=== PATIENT | male | born 1960 | race Caucasian/White ===

== ENCOUNTER 2021-12-07 14:59 | Observation (INO) ==
[2021-12-07] MEDS ORDERED: Lactated Ringers 1000 ml BAG IV.FLUID IV ONE (15:33)
[2021-12-07] MEDS ORDERED: Azithromycin 500 mg/250 ml NS 500 MG/250 ML BAG IVPB ONE (16:06)
[2021-12-07] MEDS ORDERED: cefTRIAXone 1 gm/50 mL D5W 1 GM/50 ML BAG IV ONE (16:06)
[2021-12-07] MEDS ORDERED: Lactated Ringers 1000 ml BAG 1,000 ML IV ONE (16:35)
[2021-12-07 16:48] LABS: ABS Lymphocytes 0.5 10^3/ul (1.0-4.8); ABS Monocytes 0.3 10^3/ul (0-0.8); ABS Neutrophils 8.2 10^3/ul (1.5-7.7); Eosinophil % 0.1 %; Hematocrit 33 % (42-52); Hemoglobin 11.6 g/dL (14.0-18.0); Lymphocyte % 5.4 %; Mean Corpuscular HGB Conc 35 g/dL (31-36); Mean Corpuscular Hemoglobin 32 pg (27-31); Mean Corpuscular Volume 91 fL (80-94); Mean Platelet Volume 8.6 fL (7.4-10.4); Platelet Count 239 10^3/uL (150-450); Red Blood Count 3.66 10^6 /uL (4.18-5.48); Red Cell Distribution Width 13 % (10-15)
[2021-12-07 16:56] LABS: Activated Partial Thrombo Time 28.5 seconds (26.0-38.0); INR 1.24 (0.86-1.15)
[2021-12-07 17:21] LABS: Albumin/Globulin Ratio 1.3 (1-3); C Reactive Protein 235.45 mg/L (<8.01); Calcium 7.9 mg/dL (8.6-10.3); Globulin 2.4 g/dL (2-4); Potassium 4.2 mmol/L (3.5-5.0); Total Protein 5.4 g/dL (6.4-8.9); eGFR CKD-EPI 100.6 (>60)
[2021-12-07] MEDS ORDERED: Remdesivir 100 mg Vial 200 MG in NS 0.9% 250 ml 210 ML IV ONE (17:34)
[2021-12-07 18:13] LABS: High Sensitivity Troponin 1 Hr 16 pg/mL (<20)
[2021-12-07] MEDS ORDERED: Iohexol 350 (CONTRAST) 500 ML MDV IV ONE (18:27)
[2021-12-07] MEDS ORDERED: Enoxaparin 40 MG/0.4 ML SYR SUBCUT SCH (21:00)
[2021-12-08 06:36] LABS: INR 1.19 (0.86-1.15)
[2021-12-08 06:40] LABS: ALT 116 U/L (7-52); Albumin 2.9 g/dL (3.2-5.2); Albumin/Globulin Ratio 1.1 (1-3); Alkaline Phosphatase 116 U/L (35-149); Blood Urea Nitrogen 16 mg/dL (6-24); CO2 Carbon Dioxide 22 mmol/L (22-32); Calcium 8.3 mg/dL (8.6-10.3); Chloride 108 mmol/L (101-111); Globulin 2.7 g/dL (2-4); Glucose 138 mg/dL (70-100); Sodium 139 mmol/L (135-145); Total Protein 5.6 g/dL (6.4-8.9); eGFR CKD-EPI 104.4 (>60)
[2021-12-08 06:44] LABS: Anion Gap 9 mmol/L (2-11)
[2021-12-08 07:44] LABS: ABS Lymphocytes 0.3 10^3/ul (1.0-4.8); ABS Monocytes 0.2 10^3/ul (0-0.8); ABS Neutrophils 6.7 10^3/ul (1.5-7.7); Eosinophil % 0.1 %; Hematocrit 34 % (42-52); Lymphocyte % 3.6 %; Mean Corpuscular HGB Conc 35 g/dL (31-36); Mean Corpuscular Hemoglobin 34 pg (27-31); Mean Corpuscular Volume 96 fL (80-94); Mean Platelet Volume 9.7 fL (7.4-10.4); Nucleated Red Blood Cells % 0.1; Platelet Count 322 10^3/uL (150-450); Red Blood Count 3.57 10^6 /uL (4.18-5.48); Red Cell Distribution Width 14 % (10-15); White Blood Count 7.1 10^3/uL (3.5-10.8)
[2021-12-08 11:17] VITALS: BP 121/68
[2021-12-08] MEDS ORDERED: Remdesivir 100 mg Vial 100 MG in NS 0.9% 250 ml 230 ML IV SCH (21:00)
== END 2021-12-08 13:40 | disposition home or self-care (01) ==
LOC: ED 14:59 → INTOOBSV 17:34 → EDHOLD 17:34 → MED 20:10
PROVIDERS: ADMIT Hospitalist; ATTEND Hospitalist